=== PATIENT | female | born 1960 | race Caucasian/White ===

== ENCOUNTER 2019-03-16 15:23 | Emergency (ER) | payer OTHER ==
[~2019-03-16] VITALS: Ht 160 cm; Wt 60.3 kg
[2019-03-16 16:18] LABS: URINE BILIRUBIN NEGATIVE (Negative); URINE BLOOD NEGATIVE (Negative); URINE CLARITY CLEAR; URINE COLOR YELLOW; URINE GLUCOSE-RANDOM* NEGATIVE (Negative); URINE KETONES NEGATIVE (Negative); URINE LEUKOCYTES-REFLEX TRACE (Negative); URINE NITRITE-REFLEX NEGATIVE (Negative); URINE PROTEIN (DIPSTICK) NEGATIVE (Negative); URINE SPECIFIC GRAVITY <= 1.005 (1.005-1.035); URINE UROBILINOGEN 0.2 E.U./dl (0.2-1.0)
[2019-03-16 16:24] LABS: ABSOLUTE NEUTROPHILS 3.8 thou/uL (1.4-8.2); BASOPHILS 1.2 % (0.0-2.0); HEMATOCRIT 41.4 % (37.0-47.0); LYMPHOCYTES 39.6 % (24.0-44.0); MCH 32.5 pg (26.0-34.0); MCHC 33.9 g/dL (28.0-37.0); MCV 95.9 fL (80.0-100.0); MONOCYTES 8.3 % (1.0-8.0); PLATELET COUNT 211 thou/uL (150-400); POLYS 47.9 % (36.0-66.0); RBC 4.32 mil/uL (4.20-5.00); RDW 13.3 % (10.5-14.5); WBC 7.8 thou/uL (4.0-11.0)
[2019-03-16 16:32] LABS: ANION GAP 9 mmol/L (7-16); BUN 16 mg/dL (7-18); CALCIUM 9.5 mg/dL (8.5-10.1); CHLORIDE 106 mmol/L (98-107); CO2 27 mmol/L (21-32); CREATININE 0.8 mg/dL (0.6-1.0); GLUCOSE 87 mg/dL (74-106); SODIUM 142 mmol/L (136-145)
[2019-03-16 16:42] LABS: ALBUMIN 3.3 g/dL (3.4-5.0); LIPASE 317 U/L (73-393); SGOT 13 U/L (15-37); SGPT 19 U/L (30-65); TOTAL BILIRUBIN 0.2 mg/dL (<0.1-1.0); TOTAL PROTEIN 7.4 g/dL (6.4-8.2); TROPONIN-I <0.06 ng/mL (<0.06)
[2019-03-16 18:32] VITALS: BP 114/59
[2019-03-16] MEDS ORDERED: COLACE100 MG PO (18:36)
--- NOTE | 2019-03-17 09:42 | EKG ---
[address] [place] [address] ELECTROCARDIOGRAM REPORT Name: JONO MOE [facility] [id number] Admission: 03/16/19 Attend Phys: Discharge: 03/16/19 Date of : 64 Report #: [id number] THIS REPORT FOR: //name// [facility] ED Test Date: 2019-03-16 Test Time: 16:15:07 Pat Name: JONO MOE Department: Room: Gender: Marine Technician: KULDIP : 1960 Requested By: Jacques Bonilla Order Number: [id number] MD: Seth Bennett Measurements Intervals Jaffrey Rate: 71 P: 73 WA: 132 QRS: 81 QRSD: 85 T: 72 QT: 388 QTc: 422 Interpretive Statements Sinus rhythm Normal tracing No previous ECG available for comparison Electronically Signed On 03-17-2019 9:41:37 [employer] by Seth Bennett [email or web address] <ELECTRONICALLY SIGNED> By: Seth Bennett MD, [facility] 03/17/19 0941 1615 1615 Seth Bennett MD, FACC /EPI
== END 2019-03-16 18:55 | disposition home or self-care (01) ==
LOC: ER 15:23
PROVIDERS: Emergency Medicine
DX: K59.00 Constipation, unspecified (principal); R10.84 Generalized abdominal pain